=== PATIENT | female | born 1980 | race African-American/Black ===

== ENCOUNTER 2019-09-24 13:52 | Emergency (ER) | payer OTHER ==
[~2019-09-24] VITALS: Ht 162.6 cm; Wt 127.9 kg
[2019-09-24 14:42] LABS: BASO # 0.1 10^3/uL (0.0-0.2); BASO % 0.5 % (0.0-1.0); EOS # 0.1 10^3/uL (0.0-0.5); EOS % 1.3 % (0.0-3.0); HEMATOCRIT 37.8 % (36.0-47.0); HEMOGLOBIN 12.5 g/dl (12.0-15.5); LYMPH % 21.6 % (24.0-44.0); MEAN CORPUSCULAR HEMOGLOBIN 26.4 pg (27.0-33.0); MEAN CORPUSCULAR HGB CONC 33.1 g/dl (32.0-36.5); MEAN CORPUSCULAR VOLUME 79.7 fl (80.0-96.0); MONO # 0.7 10^3/uL (0.0-0.8); MONO % 7.9 % (0.0-5.0); NEUTROPHILS # 6.3 10^3/uL (1.5-8.5); NEUTROPHILS % 68.3 % (36.0-66.0); PLATELET COUNT, AUTOMATED 243 10^3/uL (150-450); RED BLOOD COUNT 4.74 10^6/uL (4.00-5.40); WHITE BLOOD COUNT 9.2 10^3/uL (4.0-10.0)
[2019-09-24 15:22] LABS: APPEARANCE, URINE HAZY (CLEAR); BACTERIA, URINE AUTO NEGATIVE (NEGATIVE); BILIRUBIN, URINE AUTO NEGATIVE (NEGATIVE); BLOOD, URINE BLOOD 1+ (NEGATIVE); COLOR, URINE YELLOW (YELLOW); GLUCOSE, URINE (UA) AUTO NEGATIVE (NEGATIVE); KETONE, URINE AUTO NEGATIVE (NEGATIVE); LEUKOCYTE ESTERASE, URINE AUTO 2+ (NEGATIVE); NITRITE, URINE AUTO NEGATIVE (NEGATIVE); PROTEIN, URINE AUTO NEGATIVE (NEGATIVE); RBC, URINE AUTO 0 /HPF (0-3); SPECIFIC GRAVITY URINE AUTO 1.012 (1.002-1.035); SQUAMOUS EPITHELIAL CELL UR AU 3 /HPF (0-6); UROBILINOGEN, URINE AUTO 0.2 mg/dL (0.0-2.0); WBC, URINE AUTO 8 /HPF (0-3)
[2019-09-24 15:34] VITALS: BP 144/87
[2019-09-24 16:11] LABS: CHLAMYDIA DNA AMPLIFICATION NEGATIVE (NEGATIVE); GC DNA AMPLIFICATION NEGATIVE (NEGATIVE)
--- NOTE | 2019-09-24 23:20 | REP ---
FIRST TRIMESTER ULTRASOUND: Real-time sonographic evaluation of gravid uterus performed. There is a single living intrauterine gestation with an estimated gestational age of 6 weeks 3 days based on a crown-rump length of 6 mm. EDC is 05/16/2020. heart rate at 133 beats per minute. There is no subchorionic hemorrhage. No maternal adnexal region abnormality is seen. Please note that the decidual reaction surrounding the gestational sac is thin, and the gestational sac itself has a small mean diameter in relation to the crown-rump length. The mean sac diameter is 10 mm, which corresponds to an estimated age of 5 weeks 0 days, 1 week and 3 days less than the estimated age based on the crown-rump length. Electronically Signed by Mingo Urena MD 09/25/2019 04:58 P
== END 2019-09-24 15:41 | disposition home or self-care (01) ==
LOC: M ED 13:52
DX: O20.9 Hemorrhage in early pregnancy, unspecified (principal); O09.521 Supervision of elderly multigravida, first trimester; O10.011 Pre-existing essential hypertension complicating pregnancy, first trimester; O34.81 Maternal care for other abnormalities of pelvic organs, first trimester; Z3A.01 Less than 8 weeks gestation of pregnancy; Z88.2 Allergy status to sulfonamides

== ENCOUNTER → 2019-09-26 | Outpatient (CLI) | payer OTHER | LOC: M LAB 13:48 | PROVIDERS: ATTEND Obstetrics & Gynecology | DX: O46.91 Antepartum hemorrhage, unspecified, first trimester (principal) ==

== ENCOUNTER 2019-09-28 20:34 | Emergency (ER) | payer OTHER ==
[~2019-09-28] VITALS: Ht 162.6 cm; Wt 128.5 kg
[2019-09-28 21:35] LABS: BASO # 0.1 10^3/uL (0.0-0.2); BASO % 0.4 % (0.0-1.0); EOS # 0.2 10^3/uL (0.0-0.5); EOS % 1.4 % (0.0-3.0); HEMATOCRIT 36.5 % (36.0-47.0); LYMPH # 2.7 10^3/uL (1.5-5.0); LYMPH % 23.4 % (24.0-44.0); MEAN CORPUSCULAR HEMOGLOBIN 26.5 pg (27.0-33.0); MEAN CORPUSCULAR HGB CONC 32.9 g/dl (32.0-36.5); MEAN CORPUSCULAR VOLUME 80.6 fl (80.0-96.0); MONO # 1.1 10^3/uL (0.0-0.8); MONO % 9.3 % (0.0-5.0); NEUTROPHILS # 7.4 10^3/uL (1.5-8.5); PLATELET COUNT, AUTOMATED 218 10^3/uL (150-450); RED BLOOD COUNT 4.53 10^6/uL (4.00-5.40); WHITE BLOOD COUNT 11.4 10^3/uL (4.0-10.0)
--- NOTE | 2019-09-28 21:59 | REPVR ---
PROCEDURE INFORMATION: Exam: US First Trimester, Transabdominal Exam date and time: 09/28/2019 9:43 PM Age: 38 years old Clinical indication: Lmp or gestational age (in weeks): 07/30/19; Antepartum complications; Bleeding; ; Additional info: Vaginal bleeding TECHNIQUE: Imaging protocol: Real-time transabdominal obstetrical ultrasound of the maternal pelvis and a first trimester , less than 14 weeks 0 days, with image documentation. COMPARISON: No relevant prior studies available. FINDINGS: Gestation: Small gestational sac with an average sac diameter of 9.7 mm demonstrated. Hydropic thickened abnormal appearing decidual reaction demonstrated. Heart rate: Absent cardiac activity. Placenta: Not applicable. Amniotic fluid: Decreased. BIOMETRY: Estimated gestational age: pole measuring 8.6 mm corresponding to 6 weeks 6 days demonstrated. MATERNAL: Uterus: Uterus measures 11.9 x 6.3 x 7.4 cm. Cervix: Unremarkable. Right adnexa: Unremarkable. Left adnexa: Obscured by overlying bowel gas. Intraperitoneal space: No intraperitoneal free fluid. IMPRESSION: Findings consistent with 1st trimester loss. Electronically signed by: Lucho Beard On 09/28/2019 21:58:40 PM
[2019-09-28 23:14] VITALS: BP 168/82
== END 2019-09-28 23:16 | disposition home or self-care (01) ==
LOC: M ED 20:34
DX: O03.4 Incomplete spontaneous abortion without complication (principal); O09.521 Supervision of elderly multigravida, first trimester; O10.011 Pre-existing essential hypertension complicating pregnancy, first trimester; O34.81 Maternal care for other abnormalities of pelvic organs, first trimester; Z88.2 Allergy status to sulfonamides

== ENCOUNTER 2020-03-23 21:41 | Emergency (ER) | payer OTHER ==
[~2020-03-23] VITALS: Ht 162.6 cm; Wt 129.8 kg
[2020-03-23 22:30] LABS: BASO % 0.4 % (0.0-1.0); EOS # 0.2 10^3/uL (0.0-0.5); EOS % 1.7 % (0.0-3.0); HEMATOCRIT 35.6 % (36.0-47.0); HEMOGLOBIN 11.7 g/dl (12.0-15.5); LYMPH # 2.5 10^3/uL (1.5-5.0); LYMPH % 23.8 % (24.0-44.0); MEAN CORPUSCULAR HEMOGLOBIN 25.7 pg (27.0-33.0); MEAN CORPUSCULAR HGB CONC 32.9 g/dl (32.0-36.5); MEAN CORPUSCULAR VOLUME 78.2 fl (80.0-96.0); MONO # 0.9 10^3/uL (0.0-0.8); MONO % 8.6 % (0.0-5.0); NEUTROPHILS # 6.7 10^3/uL (1.5-8.5); NEUTROPHILS % 65.2 % (36.0-66.0); PLATELET COUNT, AUTOMATED 248 10^3/uL (150-450); RED BLOOD COUNT 4.55 10^6/uL (4.00-5.40); WHITE BLOOD COUNT 10.3 10^3/uL (4.0-10.0)
[2020-03-23 22:47] LABS: HCG, SERUM QUALITATIVE NEGATIVE (NEGATIVE)
[2020-03-23 22:48] LABS: ALBUMIN 3.4 GM/DL (3.2-5.2); ALT/SGPT 33 U/L (12-78); BILIRUBIN,DIRECT < 0.1 MG/DL (0.0-0.2); BILIRUBIN,TOTAL 0.2 MG/DL (0.2-1.0); BLOOD UREA NITROGEN 9 MG/DL (7-18); CALCIUM LEVEL 9.2 MG/DL (8.5-10.1); CARBON DIOXIDE LEVEL 28 MEQ/L (21-32); CHLORIDE LEVEL 108 MEQ/L (98-107); CREATININE FOR GFR 0.96 MG/DL (0.55-1.30); GLOMERULAR FILTRATION RATE > 60.0 (>58); GLUCOSE, FASTING 101 MG/DL (70-100); LIPASE 162 U/L (73-393); POTASSIUM SERUM 3.9 MEQ/L (3.5-5.1); SODIUM LEVEL 140 MEQ/L (136-145); TOTAL PROTEIN 7.9 GM/DL (6.4-8.2)
--- NOTE | 2020-03-23 23:45 | REPVR ---
PROCEDURE INFORMATION: Exam: CT Abdomen And Pelvis Without Contrast Exam date and time: 03/23/2020 10:52 PM Age: 39 years old Clinical indication: Abdominal pain; Flank; Right; Additional info: Right renal colic TECHNIQUE: Imaging protocol: Computed tomography of the abdomen and pelvis without contrast. Axial, coronal and sagittal reformatted images were created and reviewed. Radiation optimization: All CT scans at this facility use at least one of these dose optimization techniques: automated exposure control; mA and/or kV adjustment per patient size (includes targeted exams where dose is matched to clinical indication); or iterative reconstruction. COMPARISON: 1ST TRIMESTER US 09/28/2019 9:25 PM FINDINGS: Mediastinal space: Small hiatal hernia. Liver: Unremarkable. Gallbladder and bile ducts: Status post cholecystectomy. No biliary ductal dilatation. Pancreas: Unremarkable. Spleen: Unremarkable. Adrenal glands: Normal. No mass. Kidneys and ureters: 1.5 x 1.3 cm simple right renal cyst. No radiodense calculi. No hydronephrosis. Stomach and bowel: No bowel wall thickening. No obstruction. No pneumatosis. Appendix: Normal. Intraperitoneal space: No free fluid. No organized fluid collection. No free air. Vasculature: Unremarkable. No aneurysm. Lymph nodes: 2.4 x 1.4 cm mesenteric lymph node. Small inguinal lymph nodes, nonspecific in appearance. Urinary bladder: Mild circumferential urinary bladder wall thickening, likely secondary to underdistention. Reproductive: Unremarkable. Bones/joints: No acute osseous abnormality. Mild degenerative changes. Soft tissues: Small, fat containing umbilical hernia. IMPRESSION: 1. Limited noncontrast examination without CT evidence of acute intra-abdominal or pelvic pathology. 2. Additional findings, as above. COMMENTS: Consistent with the [employer]'s Incidental Findings Committee white paper (J Am Tom Radiol 2018): Any incidental renal lesion less than 1 cm or classified as too small to characterize, or any incidental cystic renal lesion characterized as simple-appearing, is likely benign. No follow-up imaging is recommended for these lesions per consensus recommendations based on imaging criteria. Electronically signed by: Jurgen Johnson On 03/23/2020 23:45:07 PM
[2020-03-24] MEDS ORDERED: CIPROFLOXACIN 500MG TABLET PO ONE
[2020-03-24] MEDS ORDERED: CIPR-249 PO (00:05)
[2020-03-24] MEDS ORDERED: LOSA50TA88 PO (00:11)
[2020-03-24] MEDS ORDERED: LOSARTAN 50MG TABLET PO ONE (00:15)
[2020-03-24 00:17] VITALS: BP 180/80
[2020-03-24 00:26] VITALS: BP 180/80
== END 2020-03-24 00:27 | disposition home or self-care (01) ==
LOC: M ED 21:41
DX: N39.0 Urinary tract infection, site not specified (principal); I10 Essential (primary) hypertension; Z91.14 Patient's other noncompliance with medication regimen; E66.9 Obesity, unspecified; Z88.2 Allergy status to sulfonamides

== ENCOUNTER 2020-09-30 18:13 | Emergency (ER) | payer OTHER ==
[~2020-09-30] VITALS: Ht 162.6 cm; Wt 131.3 kg
[~2020-09-30 18:13] MED LIST: CIPR-249 PO; LOSA50TA88 PO
[2020-09-30 19:51] LABS: BASO # 0.1 10^3/uL (0.0-0.2); BASO % 0.6 % (0.0-1.0); EOS # 0.2 10^3/uL (0.0-0.5); HEMATOCRIT 37.4 % (36.0-47.0); HEMOGLOBIN 12.3 g/dl (12.0-15.5); LYMPH # 2.4 10^3/uL (1.5-5.0); LYMPH % 25.5 % (24.0-44.0); MEAN CORPUSCULAR HEMOGLOBIN 25.8 pg (27.0-33.0); MEAN CORPUSCULAR HGB CONC 32.9 g/dl (32.0-36.5); MEAN CORPUSCULAR VOLUME 78.6 fl (80.0-96.0); MONO # 0.7 10^3/uL (0.0-0.8); NEUTROPHILS # 6.1 10^3/uL (1.5-8.5); NEUTROPHILS % 64.7 % (36.0-66.0); PLATELET COUNT, AUTOMATED 251 10^3/uL (150-450); RED BLOOD COUNT 4.76 10^6/uL (4.00-5.40); WHITE BLOOD COUNT 9.5 10^3/uL (4.0-10.0)
[2020-09-30 20:46] LABS: BLOOD UREA NITROGEN 10 MG/DL (7-18); CALCIUM LEVEL 8.6 MG/DL (8.5-10.1); CARBON DIOXIDE LEVEL 29 MEQ/L (21-32); CHLORIDE LEVEL 106 MEQ/L (98-107); CREATININE FOR GFR 0.88 MG/DL (0.55-1.30); GLOMERULAR FILTRATION RATE > 60.0 (>58); GLUCOSE, FASTING 113 MG/DL (70-100); HCG, SERUM QUANTITATIVE 13 MIU/ML; POTASSIUM SERUM 3.5 MEQ/L (3.5-5.1); SODIUM LEVEL 140 MEQ/L (136-145)
[2020-09-30 21:32] LABS: CK-MB VALUE MASS < 1.0 NG/ML (<3.6); CPK CREATINE PHOSPHOKINASE 65 U/L (26-192); MB/CK RELATIVE INDEX 1.54 (< OR =4); TROPONIN I < 0.02 NG/ML (< 0.10)
--- NOTE | 2020-09-30 23:03 | REPVR ---
PROCEDURE INFORMATION: Exam: US First Trimester, Transabdominal Exam date and time: 09/30/20 (9:49pm) Age: 39 years old Clinical indication: female. Gestational age (in weeks): 6 weeks. Spotting. TECHNIQUE: Imaging protocol: Real-time transabdominal obstetrical ultrasound of the maternal pelvis and a first trimester , less than 14 weeks 0 days, with image documentation. COMPARISON: US OB of 09/28/19 (9:26pm) FINDINGS: The LMP is not provided. Earlier sonogram (done 3 days ago) demonstrated an early IUP at approx. 6 weeks 6 days (based on the CRL), with no heart motion recorded. At this time, no IUP is seen. The uterus is 'empty'. No intrauterine gestational sac and no pole are identified. The uterus is anteverted, measures 8.4 x 5.3 x 6.3 cm in dimensions. The endometrium is thickened (13 mm in thickness. The maternal right ovary measures 2.5 x 2.9 x 1.6 cm in dimensions. The left ovary measures 3.6 x 3.4 x 1.9 cm in dimensions. There is no evidence of torsion on Doppler evaluation. No free pelvic fluid is appreciated. No solid adnexal mass. IMPRESSION: No IUP is seen. The uterus is 'empty'. No intrauterine gestational sac and no pole are identified. The endometrium measures 13 mm in thickness. The ovaries are unremarkable, with no evidence of torsion. The findings are compatible with 1st trimester loss / failed early (at approx. 7 weeks age). Electronically signed by: Ansley Jacques On 09/30/2020 23:02:38 PM
--- NOTE | 2020-09-30 23:09 | REPVR ---
PROCEDURE INFORMATION: Exam: XR Chest Exam date and time: 09/30/20 (9:11pm) Age: 39 years old Clinical indication: Hypertension TECHNIQUE: Imaging protocol: Frontal CXR Views: 1 view COMPARISON: CT ABDOMEN PELVIS of 03/23/20 FINDINGS: Lungs: Unremarkable. No consolidation. Pleural spaces: No pleural effusions. No pneumothorax. Mild elevation of the right hemidiaphragm again seen. Heart/Mediastinum: Unremarkable. No cardiomegaly. Bones/joints: Mild dextroscoliosis of the thoracic spine. IMPRESSION: No acute findings. Clear lung trevizo. Electronically signed by: Ansley Jacques On 09/30/2020 23:09:23 PM
[2020-10-01 00:22] VITALS: BP 173/88
[2020-10-01] MEDS ORDERED: MACR100C43 PO (00:28)
[2020-10-01] MEDS ORDERED: NITROFURANTOIN (MACROBID) 100 MG CAP PO ONE (00:30)
--- NOTE | 2020-10-01 18:00 | ECGEPIP ---
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
== END 2020-10-01 00:38 | disposition home or self-care (01) ==
LOC: M ED 18:13
DX: O03.88 Urinary tract infection following complete or unspecified spontaneous abortion (principal); O16.1 Unspecified maternal hypertension, first trimester; O09.521 Supervision of elderly multigravida, first trimester; O34.81 Maternal care for other abnormalities of pelvic organs, first trimester; Z88.2 Allergy status to sulfonamides

== ENCOUNTER 2021-07-28 20:03 | Emergency (ER) | payer OTHER ==
[~2021-07-28] VITALS: Ht 162.6 cm; Wt 131.0 kg
[~2021-07-28 20:03] MED LIST changes: +LOSA50TA28 PO; -LOSA50TA88 PO; +MACR100C43 PO
[2021-07-28 20:05] VITALS: BP 150/120
== END 2021-07-28 23:38 | disposition left against medical advice (07) ==
LOC: M ED 20:03
DX: Z53.21 Procedure and treatment not carried out due to patient leaving prior to being seen by health care provider (principal)

== ENCOUNTER 2021-09-08 11:45 | Emergency (ER) | payer OTHER ==
[~2021-09-08] VITALS: Ht 165.1 cm; Wt 131.0 kg
[2021-09-08 12:39] LABS: HEMATOCRIT 34.4 % (36.0-47.0); HEMOGLOBIN 11.3 g/dl (12.0-15.5); MEAN CORPUSCULAR HEMOGLOBIN 25.9 pg (27.0-33.0); MEAN CORPUSCULAR HGB CONC 32.8 g/dl (32.0-36.5); MEAN CORPUSCULAR VOLUME 78.7 fl (80.0-96.0); PLATELET COUNT, AUTOMATED 244 10^3/uL (150-450); RED BLOOD COUNT 4.37 10^6/uL (4.00-5.40); WHITE BLOOD COUNT 8.8 10^3/uL (4.0-10.0)
[2021-09-08 12:58] LABS: BLOOD UREA NITROGEN 10 MG/DL (7-18); CALCIUM LEVEL 9.1 MG/DL (8.5-10.1); CARBON DIOXIDE LEVEL 29 MEQ/L (21-32); CHLORIDE LEVEL 108 MEQ/L (98-107); CREATININE FOR GFR 0.93 MG/DL (0.55-1.30); GLOMERULAR FILTRATION RATE > 60.0 (>58); GLUCOSE, FASTING 136 MG/DL (70-100); POTASSIUM SERUM 3.9 MEQ/L (3.5-5.1); SODIUM LEVEL 142 MEQ/L (136-145)
[2021-09-08 13:01] LABS: HCG, SERUM QUALITATIVE NEGATIVE (NEGATIVE)
[2021-09-08] MEDS ORDERED: NITR1CAP11 PO (16:19)
[2021-09-08] MEDS ORDERED: ONDANSETRON 4MG ORAL DISINTEGRATING TAB PO ONE (16:30)
[2021-09-08 16:46] VITALS: BP 153/95
== END 2021-09-08 16:48 | disposition home or self-care (01) ==
LOC: M ED 11:45
DX: R31.9 Hematuria, unspecified (principal); N39.0 Urinary tract infection, site not specified; I10 Essential (primary) hypertension; Z88.2 Allergy status to sulfonamides